=== PATIENT | male | born 1975 | race Caucasian/White ===

== ENCOUNTER 2018-12-28 18:22 | Inpatient (IN) | payer BC ==
[~2018-12-28] VITALS: Ht 175.3 cm; Wt 78.0 kg
[2018-12-28] MEDS ORDERED: SOD CHLORIDE 0.9% 1,000 ML IV STA (18:39)
--- NOTE | 2018-12-28 19:08 | ERD ---
ER Documentation Chief Complaint Chief Complaint AP X TODAY HPI This is a 43-year-old man metastatic stage IV colon carcinoma brought in by EMS from home for complaints of diffuse body aches, abdominal pain, abdominal distention despite using oral opioid analgesics at home. Family members also state he has not had a bowel movement in a few days because of severe constipation due to his medications. His last round of chemotherapy was about 2 weeks ago. He has had no fevers or chills, no vomiting, no blood per rectum or melena, no complaints of chest pain or shortness of breath. Patient transported here by EMS with mild hypotension but generally comfortable. ROS All systems reviewed and are negative except as per history of present illness. Allergies Allergies: Coded Allergies: No Known Allergy (Unverified , 12/28/18) PMhx/Soc Metastatic stage IV colon carcinoma History of Surgery: Yes (APPENDECTOMY) Anesthesia Reaction: No Hx Neurological Disorder: No Hx Respiratory Disorders: No Hx Cardiac Disorders: No Hx Psychiatric Problems: No Hx Miscellaneous Medical Probl: Yes (STAGE 4 COLORECTAL CANCER, LIVER CA) Hx Alcohol Use: No Hx Substance Use: No Hx Tobacco Use: No Smoking Status: Never smoker Physical Exam Vitals Vital Signs Date Temp Pulse Resp B/P (MAP) Pulse Ox O2 O2 Flow FiO2 Time Delivery Rate 12/28/18 89 18 98 Nasal 2.0 19:58 Cannula 12/28/18 97.9 90 18 97/87 (90) 100 18:36 Physical Exam GENERAL: Well-developed, jaundiced, appears dehydrated, afebrile HEENT: Dry mucous membranes, jaundice and icterus, no cervical spine deformity NEURO: Alert and oriented 3, able to answer simple questions and follow simple commands, pupils equal round reactive to light CARDIAC: Regular rate and rhythm, no murmurs rubs or gallops LUNGS: Clear bilaterally no wheezing crackles or stridor ABDOMEN: Protuberant, soft abdomen, hepatomegaly, no guarding or rigidity SKIN: Warm and dry to touch, positive diffuse jaundice, no abrasions, contusions, or hematomas, no lacerations EXTREMITIES: No clubbing cyanosis, 1+ pitting edema in the lower extremities bilaterally, calves are bilaterally symmetrical, no Homans sign, no popliteal cord sign. Distal pulses equal and bilateral PSYCH: Normal affect without agitation or irritability Result Diagram: 4/8/19 1830 4/8/19 1830 Results 24 hrs Laboratory Tests Test 12/28/18 18:30 12/28/18 19:38 12/28/18 20:07 White Blood Count 11.7 10^3/ul Red Blood Count 4.59 10^6/ul Hemoglobin 13.2 g/dl Hematocrit 41.1 % Mean Corpuscular Volume 89.5 fl Mean Corpuscular Hemoglobin 28.8 pg Mean Corpuscular Hemoglobin Concent 32.1 g/dl Red Cell Distribution Width 24.6 % Platelet Count 107 10^3/UL Mean Platelet Volume 10.6 fl Immature Granulocytes % 1.200 % Neutrophils % 77.9 % Lymphocytes % 8.5 % Monocytes % 12.1 % Eosinophils % 0.0 % Basophils % 0.3 % Nucleated Red Blood Cells % 0.2 /100WBC Immature Granulocytes # 0.140 10^3/ul Neutrophils # 9.1 10^3/ul Lymphocytes # 1.0 10^3/ul Monocytes # 1.4 10^3/ul Eosinophils # 0.0 10^3/ul Basophils # 0.0 10^3/ul Nucleated Red Blood Cells # 0.0 10^3/ul Prothrombin Time 28.8 Sec Prothrombin Time Ratio 2.3 INR International Normalized Ratio 2.71 Activated Partial Thromboplast Time 36.3 Sec Sodium Level 125 mmol/L Potassium Level 7.0 mmol/L Chloride Level 88 mmol/L Carbon Dioxide Level 18 mmol/L Anion Gap 19 Blood Urea Nitrogen 52 mg/dl Creatinine 1.27 mg/dl Est Glomerular Filtrat Rate mL/min > 60 mL/min Glucose Level 116 mg/dl Calcium Level 8.8 mg/dl Total Bilirubin 11.5 mg/dl Direct Bilirubin 9.50 mg/dl Indirect Bilirubin 2.0 mg/dl Aspartate Amino Transf (AST/SGOT) 3177 IU/L Alanine Aminotransferase (ALT/SGPT) 679 IU/L Alkaline Phosphatase 534 IU/L Troponin I < 0.012 ng/ml Total Protein 6.8 g/dl Albumin 3.0 g/dl Globulin 3.80 g/dl Albumin/Globulin Ratio 0.78 Lipase 122 U/L Bedside Glucose 140 mg/dL 201 mg/dL Current Medications Medications Dose Sig/Radha Start Time Status Last (Trade) Ordered Route PRN Stop Time Admin Dose Reason Admin Sodium 1,000 ml @ Q1H STAT 12/28/18 DC 12/28/18 Chloride 1,000 mls/hr IV 18:39 12/28/18 18:49 19:38 Calcium 1,000 mg ONCE ONCE 12/28/18 DC 12/28/18 Chloride IV 19:30 12/28/18 19:43 (Ca Chloride 19:31 10% Syg) Albuterol 5 mg ONCE STAT 12/28/18 DC 12/28/18 (Proventil HHN 19:23 12/28/18 19:57 0.083% (Neb)) 19:30 Dextrose 50 ml ONCE STAT 12/28/18 DC 12/28/18 (D50w IV 19:23 12/28/18 19:43 Syringe) 19:30 Insulin 10 unit ONCE STAT 12/28/18 DC 12/28/18 Human IVP 19:23 12/28/18 19:42 Regular 19:30 (Humulin R) Dextrose ONCE PRN 12/28/18 (D50w IV DECREASED 19:30 12/29/18 Syringe) GLUCOSE 03:00 Sodium 30 gm ONCE ONCE 12/28/18 DC Polystyrene PO 20:00 12/28/18 Sulfonate 20:01 (Kayexalate) Procedures/MDM IV line was established patient was placed on court recording monitor rhythm strip revealed a sinus rhythm at about 80 bpm with upright P and T waves. Patient was afebrile ECG performed, read by me revealed a normal sinus rhythm at 87 bpm, left axis deviation, narrow QRS complex, no concerning ST elevations or depressions noted 1 view chest x-ray performed, read by me revealed a Port-A-Cath in the right chest, no pneumothorax, no acute infiltrates, no air under the diaphragm For hypotension and dehydration I administered 1 L normal saline IV CBC revealed mild pancytopenia, electrolytes were all abnormal with hyperkalemia at 7 and a BUN/creatinine of 52/1.3, liver function tests revealed severe transaminitis and hyperbilirubinemia consistent with metastatic disease, troponin was negative, coagulation profile revealed elevated INR For severe hyperkalemia I administered calcium 2 g IV x1, dextrose 25 g IV, regular insulin 10 units IV, albuterol 5 mg via nebulizer. Critical Care: Time: 49 minutes, this was time separate from other billable procedures. Treatments/Evaluations: Close monitoring and treatment of unstable vital signs, cardiorespiratory, and neurologic status, while maintaining tight balance of fluid, respiratory, and cardiac interventions. I spoke to patient's admitting physician Dr. Canales who agreed to admit the pa tient to telemetry setting and recommended high-dose Kayexalate. I ordered 30 g p.o. Kayexalate Patient has continued pain but blood pressure has improved, he will be admitted to telemetry setting for continued medical management, hydration, pain control. Departure Diagnosis: Primary Impression: Stage IV carcinoma of colon Additional Impressions: Hyperbilirubinemia Dehydration Hypotension Hypotension type: unspecified hypotension type Qualified Codes: I95.9 - H ypotension, unspecified Intractable pain Constipation Constipation type: slow transit constipation Qualified Codes: K59.01 - Slow transit constipation Acute hyperkalemia Acute kidney injury Condition: Serious REAGAN RENTERIA MD Dec 28, 2018 19:08
[2018-12-28] MEDS ORDERED: DEXTROSE 50% 50 ML SYRINGE IV STA (19:23)
[2018-12-28] MEDS ORDERED: ALBUTEROL 0.083% (NEB) 2.5 MG/3 ML AMP HHN STA (19:23)
[2018-12-28] MEDS ORDERED: INSULIN REGULAR, HUMAN 100 UNIT/1 ML 3ML VIAL IVP STA (19:23)
[2018-12-28] MEDS ORDERED: CA CHLORIDE 10% 10 ML SYRINGE IV ONE (19:30)
[2018-12-28] MEDS ORDERED: DEXTROSE 50% 50 ML SYRINGE IV PRN (19:30)
[2018-12-28] MEDS ORDERED: NA POLYST SULFON 15 GM/60 ML BTL PO ONE (20:00)
[2018-12-28] MEDS ORDERED: NA POLYST SULFON 15 GM/60 ML BTL NGT ONE (21:00)
[2018-12-28] MEDS ORDERED: ONDANSETRON 4 MG INJ IV PRN (21:00)
[2018-12-28] MEDS ORDERED: MAGNESIUM HYDROXIDE 30ML CUP PO PRN (21:00)
[2018-12-28] MEDS ORDERED: BISACODYL 10 MG SUPP PR PRN (21:00)
[2018-12-28] MEDS ORDERED: ZOLPIDEM 5 MG TAB PO PRN (21:00)
[2018-12-28] MEDS ORDERED: NACL 0.9% 3 ML SYG IV SCH (21:00)
[2018-12-28] MEDS ORDERED: CAPE500T13 PO (21:03)
[2018-12-28] MEDS ORDERED: MORP15TA3 PO (21:03)
[2018-12-28] MEDS ORDERED: ONDA4TAB95 PO (21:05)
[2018-12-28] MEDS ORDERED: HYDR-4011 PO (21:05)
[2018-12-28 22:09] VITALS: PULSE 93
[2018-12-28 22:18] VITALS: Ht 175.3 cm; Wt 78.0 kg
[2018-12-28 22:22] VITALS: BP 106/57; PULSE 98; RESP 20
[2018-12-28] MEDS: SOD CHLORIDE 0.9% 1,000 ML IV SCH (22:57)
[2018-12-29] VITALS (8 sets, daily range): BP systolic 101–131; BP diastolic 56–69; PULSE 73–104; RESP 18–20
[2018-12-29] MEDS: morphine 2 MG INJ IV PRN ×3 (02:36→11:18)
[2018-12-29] MEDS: SOD CHLORIDE 0.9% 1,000 ML IV SCH ×2 (04:16→11:12)
[2018-12-29] MEDS ORDERED: PANTOPRAZOLE (EC) 40 MG TAB PO SCH (06:00)
[2018-12-29] MEDS ORDERED: NA POLYST SULFON 15 GM/60 ML BTL PO ONE (09:30)
[2018-12-29] MEDS ORDERED: LORAZEPAM 2 MG INJ IV PRN (11:30)
[2018-12-29] MEDS ORDERED: morphine (DRIP) 100 MG/100 ML 100 ML IV SCH ×2 (11:30→13:00)
[2018-12-29] MEDS ORDERED: MAGNESIUM CITRATE 300 ML BTL PO ONE (11:30)
--- NOTE | 2018-12-29 12:06 | CONS ---
Assessment/Plan Assessment/Plan Assessment/Plan (Daily) Metastatic colon cancer stage IV widespread metastasis Excruciating abdominal discomfort and pain out of control secondary to #1 Encephalopathy delirium secondary to pain out of control, fluid electrolyte abnormalities, liver failure Discussion with patient's and other family members as well as patient's primary care oncologist everyone is in agreement for comfort measures at this time. Consultation Date/Type/Reason Admit Date/Time Dec 28, 2018 at 19:48 Date/Time of Note DATE: 12/29/18 TIME: 12:03 Hx of Present Illness This is a 43-year-old male who is advanced colon cancer stage IV. I spoken to his oncologist today who states that he was in the process of referring patient to hospice care when patient began to deteriorate precipitously. Was brought into the hospital with severe abdominal discomfort diffuse all 4 quadrants, patient is delusional story is given from patient's family members specifically his . She was unaware of the fact that there was nothing further to offer patient insofar as chemotherapy or any other interventions. However she understands that he is suffering at this time and wants him just to be comfortable with whatever means necessary. She is understandably devastated. Patient cannot give any clear history of present illness he has babbling incoherently. But according to family members he has not been able to eat or drink anything within the last couple of days and has not had bowel movements. Once again I spoke the patient's primary care and oncologist who agrees with hospice care at this time as he has no further therapy to offer. Unable to obtain patient is an extremis pain out of control and delusional Past Medical History Medical History: cancer Home Meds Reported Medications Ondansetron Hcl* (Ondansetron Hcl*) 4 Mg Tablet, 4 MG PO Q8H 1 TABS ORALLY EVERY 8 TO 12 HOURS 12/28/18 Hydrocodone/Acetaminophen ([place] 5-325 Tablet) 1 Each Tablet, 1 EACH PO, TAB TAKE 1 TO 2 TABLETS EVERY Q6H FOR PAIN NEEDED 12/28/18 Morphine Sulfate (Morphine Sulfate ER) 15 Mg Tablet.er, 15 MG PO Q12H for 30 Days, #60 TAKE 1 TABLET EVERY 12 HOURS ,DO NOT CRUSH OR CHEW 12/28/18 Capecitabine (Capecitabine) 500 Mg Tablet, 500 MG PO for 21 Days, #112 12/28/18 Medications Current Medications Sodium Chloride 1,000 ml @ 150 mls/hr Q6H40M IV Last administered on 12/29/18at 11:12; Admin Dose 150 MLS/HR; Start 12/28/18 at 20:34 IV Flush (NS 3 ml) 3 ml PER PROTOCOL IV ; Start 12/28/18 at 21:00 Ondansetron HCl (Zofran Inj) 4 mg Q6H PRN IV NAUSEA/VOMITING; Start 12/28/18 at 21:00 Zolpidem Tartrate (Ambien) 5 mg QHS PRN PO .INSOMNIA Last administered on 12/28/18at 23:06; Admin Dose 5 MG; Start 12/28/18 at 21:00 Magnesium Hydroxide (Milk Of Mag) 30 ml DAILY PRN PO .CONSTIPATION; Start 12/28/18 at 21:00 Bisacodyl (Dulcolax Supp) 10 mg DAILY PRN CA .CONSTIPATION; Start 12/28/18 at 21:00 Pantoprazole (Protonix Tab) 40 mg DAILY@06 PO Last administered on 12/29/18at 05:11; Admin Dose 40 MG; Start 12/29/18 at 06:00 Morphine Sulfate/ Sodium Chloride 100 ml @ 1 mls/hr TITRATE IV ; Start 12/29/18 at 11:30; Status UNV Lorazepam (Ativan) 2 mg Q3 PRN IV SEDATION; Start 12/29/18 at 11:30; Status UNV Allergies: Coded Allergies: No Known Allergy (Unverified , 12/28/18) Social History Smoking Status: Never smoker Exam/Review of Systems Exam Vitals Vital Signs Date Temp Pulse Resp B/P (MAP) Pulse Ox O2 O2 Flow FiO2 Time Delivery Rate 12/29/18 98.1 102 18 131/61 95 Nasal 11:28 (84) Cannula 12/29/18 1.5 08:04 Intake and Output 12/28/18 12/28/18 12/29/18 1515:00 23:00 07:00 IntakeIntake Total 400 ml BalanceBalance 400 ml Constitutional: distress, frail, other Psych: confusion Eyes: nl conjunctiva, EOMI, nl lids, nl sclera, PERRL Neck: supple, non-tender Respiratory: clear to auscultation, normal air movement Gastrointestinal: other (Distended in all 4 quadrants, hypoactive bowel sounds mass-effect right upper quadrant mass-effect left upper quadrant diffusely exquisitely tender in all 4 quadrants) Results Result Diagram: 12/28/18 1830 12/29/18 0605 Results 24hrs Laboratory Tests Test 12/28/18 18:30 12/28/18 19:38 12/28/18 20:07 12/29/18 06:05 White Blood Count 11.7 H Red Blood Count 4.59 L Hemoglobin 13.2 L Hematocrit 41.1 L Mean Corpuscular Volume 89.5 Mean Corpuscular 28.8 L Hemoglobin Mean Corpuscular 32.1 Hemoglobin Concent Red Cell Distribution 24.6 H Width Platelet Count 107 L Mean Platelet Volume 10.6 H Immature Granulocytes % 1.200 H Neutrophils % 77.9 H Lymphocytes % 8.5 L Monocytes % 12.1 H Eosinophils % 0.0 Basophils % 0.3 Nucleated Red Blood 0.2 H Cells % Immature Granulocytes # 0.140 H Neutrophils # 9.1 H Lymphocytes # 1.0 Monocytes # 1.4 H Eosinophils # 0.0 Basophils # 0.0 Nucleated Red Blood 0.0 Cells # Prothrombin Time 28.8 H Prothrombin Time Ratio 2.3 INR International 2.71 Normalized Ratio Activated 36.3 H Partial Thromboplast Time Sodium Level 125 L 127 L Potassium Level 7.0 *H 6.9 *H Chloride Level 88 L 94 L Carbon Dioxide Level 18 L 18 L Anion Gap 19 H 15 H Blood Urea Nitrogen 52 H 56 H Creatinine 1.27 H 1.47 H Est Glomerular Filtrat > 60 52 L Rate mL/min Glucose Level 116 110 Calcium Level 8.8 8.9 Total Bilirubin 11.5 H Direct Bilirubin 9.50 H Indirect Bilirubin 2.0 H Aspartate Amino 3177 H Transf (AST/SGOT) Alanine 679 H Aminotransferase (ALT/SG PT) Alkaline Phosphatase 534 H Troponin I < 0.012 Total Protein 6.8 Albumin 3.0 L Globulin 3.80 H Albumin/Globulin Ratio 0.78 Lipase 122 Bedside Glucose 140 201 Medications Medication Current Medications Sodium Chloride 1,000 ml @ 150 mls/hr Q6H40M IV Last administered on 12/29/18at 11:12; Admin Dose 150 MLS/HR; Start 12/28/18 at 20:34 IV Flush (NS 3 ml) 3 ml PER PROTOCOL IV ; Start 12/28/18 at 21:00 Ondansetron HCl (Zofran Inj) 4 mg Q6H PRN IV NAUSEA/VOMITING; Start 12/28/18 at 21:00 Zolpidem Tartrate (Ambien) 5 mg QHS PRN PO .INSOMNIA Last administered on 12/28/18at 23:06; Admin Dose 5 MG; Start 12/28/18 at 21:00 Magnesium Hydroxide (Milk Of Mag) 30 ml DAILY PRN PO .CONSTIPATION; Start 12/28/18 at 21:00 Bisacodyl (Dulcolax Supp) 10 mg DAILY PRN CA .CONSTIPATION; Start 12/28/18 at 21:00 Pantoprazole (Protonix Tab) 40 mg DAILY@06 PO Last administered on 12/29/18at 05:11; Admin Dose 40 MG; Start 12/29/18 at 06:00 Morphine Sulfate/ Sodium Chloride 100 ml @ 1 mls/hr TITRATE IV ; Start 12/29/18 at 11:30; Status UNV Lorazepam (Ativan) 2 mg Q3 PRN IV SEDATION; Start 12/29/18 at 11:30; Status UNV JUAN MANUEL JAMES Dec 29, 2018 12:06
--- NOTE | 2018-12-29 13:22 | HP ---
DATE OF ADMISSION: 12/28/2018 CHIEF COMPLAINT: Abdominal pain. HISTORY OF PRESENT ILLNESS: A 43-year-old unfortunate male with stage IV metastatic colon cancer bro ught in by paramedics with complaint of diffuse body aches, abdominal pain and abdominal distention. The patient apparently has not had a bowel movement for several days. He has been taking MS Contin at home. The patient was receiving chemotherapy until 2 weeks prior to admission. At that time, the y noticed rising total bilirubin and they stopped the chemotherapy. Initial evaluation revealed sodi um of 125, potassium of 7, BUN of 52, creatinine of 1.27, total bilirubin of 9.5, AST of 3177, ALT of 679 and alkaline phosphatase of 534. Lipase was normal at 122. Albumin was low at 3. PAST MEDICAL HISTORY: Stage IV colon cancer. PAST SURGICAL HISTORY: Status post appendectomy. PHYSICAL EXAMINATION: GENERAL: Ill-appearing 43-year-old male who is in moderate distress. VITAL SIGNS: Stable. He is afebrile. HEENT: Extraocular muscles are intact. Pupils are equal and reactive to light bilaterally. Sclerae are anicteric. Oropharynx is clear and moist. NECK: Supple. No JVD, no carotid bruits. LUNGS: Clear to auscultation bilaterally. CARDIAC: Regular rate and rhythm. No murmurs, rubs or gallops. ABDOMEN: Tense, quite tender to palpation diffusely. Decreased bowel sounds. EXTREMITIES: A 3+ pitting edema. NEUROLOGICAL: Nonfocal. ASSESSMENT: 1. A 43-year-old male with stage IV colorectal cancer and metastasis to the liver. 2. Hepatic failure due to metastatic disease. 3. Jaundice. 4. Severe constipation due to narcotics. 5. Hyperkalemia. 6. Acute kidney injury. 7. Dehydration. PLAN: 1. Place in med/surg, observation. 2. Magnesium citrate. 3. Kayexalate. 4. Monitor serum potassium closely. 5. Palliative care consultation was requested. We need to address code status and advanced directiv es. 6. I had a long discussion with the patient's regarding his condition and poor prognosis. Dictated By: CHUCHO HAMMOND/CARO Conf#: [id number] DID#: [id number]
[2018-12-29] MEDS ORDERED: ONDANSETRON 4 MG INJ IV PRN (16:00)
[2018-12-29] MEDS ORDERED: BISACODYL 10 MG SUPP PR PRN (16:00)
[2018-12-29] MEDS ORDERED: ATROPINE 1% 5 ML OPH SL PRN (16:00)
--- NOTE | 2018-12-29 23:27 | HP ---
DATE OF ADMISSION: 12/28/2018 PRIMARY HOSPITAL DIAGNOSIS: Metastatic colorectal cancer with extensive metastasis to the liver, comorbid acute kidney injury. CHIEF COMPLAINT AND HISTORY OF PRESENT ILLNESS: History is obtained from medical record and discussion with the patient's family and nursing staff. The patient is 43-year-old gentleman with stage IV metastatic colon cancer. The patient has known history of liver mets. The patient received 1 cycle of chemotherapy and came to ER with diffuse body pain, abdominal pain and abdominal distention. The patient was on MS Contin at home and was constipated. The patient's bilirubin a couple of weeks ago before starting chemotherapy was 6. The patient in the ER was noted to be deeply jaundiced with bilirubin of 9.5. AST was noted to be 3177, ALT 679, alkaline phosphatase 535. The patient was admitted at [facility] on 12/28/2018. A palliative care consult from Dr. Baker was obtained. The patient was referred to [facility] after the patient and his family agreed for comfort care. The patient was started on morphine drip which was at 1 mg an hour, which was then increased quickly due to pain. The patient did not have any vomiting. No reported wheezing. No reported cough. The patient remains responsive. The patient has lower extremity edema and abdominal distention. No reported fever or chills. No reported GI bleed. The patient does have a coagulopathy with INR more than 2. The patient also had generalized weakness and according to family had poor appetite. PAST MEDICAL HISTORY: As stated above. PAST SURGICAL HISTORY: The patient is status post appendectomy. ALLERGIES: NONE. SOCIAL HISTORY: No smoking or alcohol abuse. PHYSICAL EXAMINATION: Noncontributory. GENERAL: He will be lethargic but arousable and follows simple commands, keeps his eyes closed. VITAL SIGNS: Blood pressure 101/68, pulse 90, respiration 20, temperature 97.8. HEENT: Atraumatic, normocephalic. Conjunctivae are icteric. Oropharynx revealed dry oral mucosa. . NECK: Normal. No mass. CHEST: Diminished air entry at bases. No use of accessory muscles. CARDIOVASCULAR: S1, S2 normal, no murmur. ABDOMEN: Distended. Right upper quadrant tenderness present. EXTREMITIES: Edematous. No clubbing, cyanosis. NEUROLOGIC: The patient is lethargic but arousable, follows simple commands, has generalized weakness. LABORATORY DATA: As above. In addition, sodium was 125, potassium was 7. Upon arrival, BUN was 52, creatinine 1.2. IMPRESSION: 1. Stage IV colon cancer with metastatic to the liver. 2. Hepatic failure. 2. Acute kidney injury and hyperkalemia. PLAN: The patient has been started on morphine drip and is currently on 2 mg an hour, and the drip will be titrated up to provide comfort. We will also add Ativan 1 mg q.3h. p.r.n. for terminal anxiety, atropine drops for secretions and IV Zofran for vomiting. The patient remains terminally ill and appropriate for GIP level of hospice care. Plan of care discussed with the patient's family. I also spoke with the patient's nurse at [facility] and with desk nurse, Swetha, as well as a mobile unit assistant Clint We will continue to optimize comfort care. Dictated By: TAYLER FISHER MD AB/NTS Conf#: [id number] DID#: [id number] CC: CHUCHO FLORES MD;*EndCC* MTDD
[2018-12-30 01:58] VITALS: BP 88/53; PULSE 97; RESP 16
[2018-12-30 07:57] VITALS: BP 67/41; PULSE 104; RESP 14
--- NOTE | 2018-12-30 14:19 | CONS ---
Assessment/Plan Assessment/Plan Assessment/Plan (Daily) 43 yo gentleman with metastatic colon cancer, aggressive clinical course with elevated bilirubin and liver enzymes consistent with liver failure. Family has agreed to proceed with hospice and was discussed with his outpatient oncologist. Appreciate palliative care recommendations. Multiple family members and friends were present in the room, discussed plan with patient's sister. Consultation Date/Type/Reason Admit Date/Time Dec 28, 2018 at 19:48 Type of Consult Hematology-Oncology Consult Reason for Consultation metastatic colon cancer Date/Time of Note DATE: 12/30/18 TIME: 14:12 Hx of Present Illness 43 year old M with metastatic colon cancer who presented with several days of constipation, altered mental status and pain. His first and only cycle of chemotherapy was given in mid-November. Since then, he was noted to have increasing bilirubin and treatment was held. He was treated for hyperkalemia when admitted. Palliative care was consulted for pain management and goals of care discussion. He is currently on a morphine drip and appears mostly comfortable. Subjective hx not possible: pt non-verbal Past Medical History Medical History: cancer Home Meds Reported Medications Ondansetron Hcl* (Ondansetron Hcl*) 4 Mg Tablet, 4 MG PO Q8H 1 TABS ORALLY EVERY 8 TO 12 HOURS 12/28/18 Hydrocodone/Acetaminophen ([place] 5-325 Tablet) 1 Each Tablet, 1 EACH PO, TAB TAKE 1 TO 2 TABLETS EVERY Q6H FOR PAIN NEEDED 12/28/18 Morphine Sulfate (Morphine Sulfate ER) 15 Mg Tablet.er, 15 MG PO Q12H for 30 Days, #60 TAKE 1 TABLET EVERY 12 HOURS ,DO NOT CRUSH OR CHEW 12/28/18 Capecitabine (Capecitabine) 500 Mg Tablet, 500 MG PO for 21 Days, #112 12/28/18 Medications Current Medications Lorazepam (Ativan) 2 mg Q3 PRN IV SEDATION; Start 12/29/18 at 11:30 Morphine Sulfate/ Sodium Chloride 100 ml @ 2 mls/hr TITRATE IV Last administered on 12/29/18at 14:31; Admin Dose 2 MLS/HR; Start 12/29/18 at 13:00 Ondansetron HCl (Zofran Inj) 4 mg Q6H PRN IV NAUSEA AND/OR VOMITING; Start 12/29/18 at 16:00 Bisacodyl (Dulcolax Supp) 10 mg DAILY PRN ME CONSTIPATION; Start 12/29/18 at 16:00 Atropine Sulfate (Atropine 1% Oph) 2 drop Q2H PRN SL PRN SECRETIONS; Start 12/29/18 at 16:00 Allergies: Coded Allergies: No Known Allergy (Unverified , 12/28/18) Social History Smoking Status: Never smoker Exam/Review of Systems Exam Vitals Vital Signs Date Temp Pulse Resp B/P (MAP) Pulse Ox O2 O2 Flow FiO2 Time Delivery Rate 12/30/18 99.2 104 14 67/41 (50) 93 07:57 12/30/18 Nasal 1.0 03:04 Cannula Intake and Output 12/29/18 12/29/18 12/30/18 1515:00 23:00 07:00 IntakeIntake Total 900 ml 26 ml BalanceBalance 900 ml 26 ml Constitutional: non-verbal Head: normocephalic, atraumatic Respiratory: normal air movement Cardiovascular: regular rate and rhythm Gastrointestinal: distended Extremities: edema Skin: other (jaundice) Results Result Diagram: 12/28/18 1830 12/29/18 0605 Medications Medication Current Medications Lorazepam (Ativan) 2 mg Q3 PRN IV SEDATION; Start 12/29/18 at 11:30 Morphine Sulfate/ Sodium Chloride 100 ml @ 2 mls/hr TITRATE IV Last administered on 12/29/18at 14:31; Admin Dose 2 MLS/HR; Start 12/29/18 at 13:00 Ondansetron HCl (Zofran Inj) 4 mg Q6H PRN IV NAUSEA AND/OR VOMITING; Start 12/29/18 at 16:00 Bisacodyl (Dulcolax Supp) 10 mg DAILY PRN ME CONSTIPATION; Start 12/29/18 at 16:00 Atropine Sulfate (Atropine 1% Oph) 2 drop Q2H PRN SL PRN SECRETIONS; Start 12/29/18 at 16:00 LU MORA MD Dec 30, 2018 14:19
--- NOTE | 2018-12-30 21:56 | PN ---
DATE: 12/30/2018 PRIMARY HOSPICE DIAGNOSIS: Metastatic colon cancer. COMORBIDITIES: Acute kidney injury. SUBJECTIVE AND INTERVAL HISTORY: The patient since yesterday has declined further. The patient is n ow nonverbal. The patient did have hiccups in the morning, but now is nonverbal and does not have an y more hiccups. The patient is unable to take anything p.o. The patient did not have any bleeding f rom any site. PHYSICAL EXAMINATION: GENERAL: The patient noted to be nonverbal. VITAL SIGNS: Temperature 99.7, pulse 104, respirations 14, blood pressure 67/41, O2 saturation 93% o n 2 liters cannula. HEENT: No eye discharge or redness. NECK: No mass. CHEST: Diminished air entry at bases. CARDIOVASCULAR: Regular rate and rhythm. ABDOMEN: Distended. EXTREMITIES: Edematous. NEUROLOGIC: The patient is nonverbal. IMPRESSION: 1. Metastatic colon cancer with mets to the liver. 2. Acute kidney injury. PLAN: The patient will be continued on morphine drip at 2 mg an hour. We will continue Ativan for t erminal anxiety and atropine drops for secretions. I spoke with the patient's family who interpreted for the patient's . For now, she requested to continue current dose of morphine drip. The venkata ent is terminally ill and remains appropriate for hospice care. Dictated By: TAYLER COSTA/CARO Conf#: [id number] DID#: [id number]
--- NOTE | 2018-12-31 02:10 | DS ---
DATE OF ADMISSION: 12/28/2018 DATE OF DISCHARGE: DISCHARGE DIAGNOSES: 1. Stage IV metastatic colon cancer. 2. Hepatic failure. 3. Jaundice. 4. Hyperkalemia. 5. Acute kidney injury. 6. Dehydration. 7. Hyponatremia. 8. DNR code status. HOSPITAL COURSE: A 43-year-old unfortunate male with stage IV metastatic colon cancer brought in by paramedics after he reported diffuse body aches and abdominal pain. The patient has widely metastati c disease to the liver with hepatic failure. The total bilirubin was 9. Chemotherapy was discontinu ed 2 weeks prior to admission. Case was discussed with his oncologist. No more treatment is recomme nded and no more treatment was planned and hospice was recommended. The patient was seen by Dr. Narciso bobby. His agreed to DNR code status and comfort measures. The patient will be transferred to [facility] for end of life care. Dictated By: CHUCHO HAMMOND/CARO Conf#: [id number] DID#: [id number]
--- NOTE | 2019-01-01 00:45 | DES ---
DATE OF ADMISSION: 12/28/2018 DATE OF : 12/31/2018 CAUSE OF : Metastatic colon cancer, comorbid acute kidney injury. CHIEF COMPLAINT AND HISTORY OF PRESENT ILLNESS: The patient was 43-year-old gentleman with stage IV metastatic colon cancer. The patient had known history of liver mets and his bilirubin count was frederick und 6. The patient recently received his first dose of chemotherapy. The patient, however, continue d to decline and came to ER with generalized body pain, specifically in the right right-sided abdomin al pain and abdominal distention. The patient was on MS Contin prior to admission to the hospital. The patient was noted to have bilirubin of 9.5. AST was 3177, ALT 679, alkaline phosphatase 535. Th e patient also was noted to be in acute kidney injury. His BUN was 52, creatinine was 1.2. The venkata ent also was noted to have severe hyperkalemia with potassium of 7. The patient was seen by Dr. Narciso bobby from palliative care standpoint and was referred to hospice. I also spoke with the patient's [facility] oncologist. HOSPITAL COURSE: The patient was admitted under [facility] level of care on 12/29/2018 for intractable pain . The patient was started on morphine drip at 1 mg an hour, which was increased to 2 mg an hour. e patient's morphine dose transiently reduced to 1 mg per hour as per family request; however, the pa jessica was noted to be in pain and therefore family requested him to be back on morphine drip at 2 mg an hour. The patient was also started on IV Ativan on p.r.n. basis for terminal anxiety, atropine dr ops for secretions. The patient progressively became nonverbal and did not have any p.o. intake [facility] under hospice. I spoke with the patient's family member as well as the patient's . The patient continued to decline and last night, his blood pressure dropped into 60s and patient also had terminal tachycardia and low grade fever. The patient on 12/31/2018 at 1:19 a.m. was noted to h ave no pulse or blood pressure. There were no heart sounds. Pupils were fixed and dilated and maddy nt was pronounced at 1:19 a.m. on 12/31/2018. The patient's family was at bedside. Yan were also informed. Dictated By: TAYLER COSTA/CARO Conf#: [id number] DID#: [id number] CC: CHUCHO FLORES MD;*EndCC*
== END 2018-12-31 05:05 | disposition expired | DRG 375 ==
LOC: EDBD 18:22 → E/R 18:22 → TEL 19:48 → PP2 12-29 23:28
PROVIDERS: ADMIT Internal Medicine; ATTEND Internal Medicine
DX: C18.9 Malignant neoplasm of colon, unspecified (principal); C78.7 Secondary malignant neoplasm of liver and intrahepatic bile duct; N17.9 Acute kidney failure, unspecified; E87.1 Hypo-osmolality and hyponatremia; F05 Delirium due to known physiological condition; G93.49 Other encephalopathy; Z51.5 Encounter for palliative care; E86.0 Dehydration; E87.5 Hyperkalemia; G89.3 Neoplasm related pain (acute) (chronic); K72.10 Chronic hepatic failure without coma; K59.03 Drug induced constipation; T40.2X5A Adverse effect of other opioids, initial encounter; Z92.21 Personal history of antineoplastic chemotherapy
CPT/HCPCS: 36415; 71045; 80048; 80053; 82962; 83690; 84484; 85025; 85610; 85730; 86850; 86900; 86901; 94664; 96374; 96375; J1815; J2270; J7030